=== PATIENT | female | born 1945 | race Caucasian/White ===

== ENCOUNTER → 2018-05-27 | Outpatient (CLI) | payer MEDICARE ==
[~2018-05-27] MED LIST: BUPR150T6 PO; CELE200C PO; GADOBUTROL 10 MMOL/10 ML VIAL IV ONE; HYDR200T71 PO; LOSA1TAB25 PO; METH25VI27 SQ; OMEP40CA5 PO; SIMV40TA3 PO; VENL75TA PO
--- NOTE | 2018-05-27 17:13 | KCIC ---
MRI Brain with and without contrast History: Subjective pulsatile tinnitus for 3 to 4 months Technique: Multiplanar, multi sequential pre and postcontrast MR imaging was performed of the brain. Contrast: 8 cc Gadavist Comparison: None Findings: There is motion degradation. There is no evidence of recent infarct or cytotoxic edema. The ventricles, sulci, and cisterns are within normal limits in size and configuration. There is no significant midline shift, intraaxial mass effect, or focal abnormal extra-axial fluid collection. There is scattered overall mild T2 and FLAIR hyperintense abnormality of the supratentorial parenchyma including the white matter and left basal ganglia, also minimal signal abnormality of the bertha. There is no nodular parenchymal or leptomeningeal enhancement. Tortuous right intradural vertebral artery contacts the right lateral surface of the medulla and also anterior surface of the right cerebellum. The cerebellar tonsils are normal in location. There is no significant abnormality of the pineal gland or pituitary gland. Paranasal sinuses are overall aerated. There is patchy mild fluid of the left mastoid air cells. There is mild bilateral ethmoid air cell mucosal thickening. There is a small mucous retention cyst of the left maxillary sinus.There is preserved marrow signal of the clivus. There has been lens surgery bilaterally, slightly disconjugate gaze. There is no enhancing mass of the internal auditory canals or the cerebellopontine angles. Impression: 1. There is no evidence of recent infarct or abnormal intracranial enhancement. Exam is degraded by motion. Overall mild T2 and FLAIR hyperintense abnormality of the supratentorial parenchyma and bertha is nonspecific although most commonly due to chronic microvascular ischemic disease in a patient of this age. MRA Brain History: Subjective pulsatile tinnitus for 3 to 4 months Technique: 3-D [id number] MR angiography was performed of the brain. Comparison: None Contrast: None Findings: Determination of any degree of stenosis is based on NASCET criteria. There is tortuous right intradural vertebral artery contacts the lateral surface of the right medulla and anterior surface of the right cerebellum. Both vertebral arteries constitute the basilar artery. There is visualization of segments bilateral PICAs and left AICA, right AICA not seen. There is visualization of bilateral superior cerebellar arteries. No significant posterior communicating arteries are visualized. There is tiny patent anterior communicating artery. There is visualization of the internal carotid arteries bilaterally at the skull base. There is tortuosity of the distal cervical right internal carotid artery. No significant intracranial stenosis or aneurysm is identified. Impression: 1. New significant intracranial stenosis or aneurysm is identified. Electronically signed by: Trevor Ribeiro MD (05/27/2018 5:10 PM) [id number]
== END | disposition home or self-care (01) ==
LOC: KCIC MRI 15:20
PROVIDERS: ATTEND Otolaryngology
DX: H93.A1 Pulsatile tinnitus, right ear (principal); J34.1 Cyst and mucocele of nose and nasal sinus
CPT/HCPCS: 70544; 70553; 82565; A9585